=== PATIENT | female | born 1985 | race American Indian/Alaskan Native ===

== ENCOUNTER 2020-10-15 13:55 | Emergency (ER) | payer MEDICAID ==
[~2020-10-15] VITALS: Ht 172.7 cm; Wt 73.0 kg
[2020-10-15 14:01] VITALS: BP 162/80
[2020-10-15] MEDS ORDERED: CLONAZEPAM 0.5MG TABLET PO ONE (15:00)
== END 2020-10-15 15:34 | disposition home or self-care (01) ==
LOC: ER 13:55
DX: Z76.0 Encounter for issue of repeat prescription (principal); F41.0 Panic disorder [episodic paroxysmal anxiety]; I10 Essential (primary) hypertension; Z59.0 Homelessness
CPT/HCPCS: 99283